=== PATIENT | male | born 1995 | race Caucasian/White ===

== ENCOUNTER 2018-05-06 20:32 | Emergency (ER) | payer OTHER ==
[2018-05-06 21:09] VITALS: BP 123/65
[2018-05-06] MEDS ORDERED: NORMAL SALINE 1000 ML 1,000 ML IV ONE (21:56)
[2018-05-06] MEDS ORDERED: DICYCLOMINE HCL INJ 20 MG/2 ML AMPULE IM ONE (21:56)
[2018-05-06] MEDS ORDERED: ONDANSETRON HCL INJ/PF 4 MG/2 ML SDV IV ONE (21:56)
--- NOTE | 2018-05-06 22:01 | ER Document Report ---
ED General - General Chief Complaint: Nausea/Vomiting/Diarrhea Stated Complaint: VOMITING Time Seen by Provider: 05/06/18 21:51 Notes: Patient is a 22-year-old male who presents with complaint of nausea vomiting diarrhea. He has had some crampy abdominal pain. Started with crampy abdominal pain around 9 AM. That he start having vomiting diarrhea and says he said consistent with recurrent vomiting and diarrhea since then. Stools been watery. Last antibiotic use was approximately month ago when he was placed on clindamycin. No recent fevers. Some epigastric pain with the vomiting. No right lower quadrant tenderness. No recent travel outside the country. No blood in his stool or emesis. No other points at this time. He is unsure if he had any sick contacts. TRAVEL OUTSIDE OF THE [place] IN LAST 30 DAYS: No - Related Data Allergies/Adverse Reactions: Sulfa (Sulfonamide Antibiotics) Allergy (Verified 05/06/18 20:33) Past Medical History - Social History Smoking Status: Never Smoker Frequency of alcohol use: None Drug Abuse: None Family History: Reviewed & Not Pertinent Review of Systems - Review of Systems Notes: My Normal Review Basic REVIEW OF SYSTEMS: CONSTITUTIONAL : Denies fever, chills, or sweats. Denies recent illness. EENT: Denies eye, ear, throat, or mouth pain or symptoms. Denies nasal or sinus congestion. RESPIRATORY: Denies cough, cold, or chest congestion. Denies shortness of breath, difficulty breathing, or wheezing. GASTROINTESTINAL: Abdominal pain, vomiting, diarrhea. GENITOURINARY: Denies difficulty urinating, painful urination, burning, frequency, or blood in urine. MUSCULOSKELETAL: Denies neck or back pain or joint pain or swelling. SKIN: Denies rash or skin lesions. NEUROLOGICAL: Denies altered mental status or loss of consciousness. Denies headache. Denies weakness or paralysis or loss of use of either side. Denies problems with gait or speech. Denies sensory or motor loss. ALL OTHER SYSTEMS REVIEWED AND NEGATIVE. Physical Exam - Vital signs Vitals: Temp Pulse Resp BP Pulse Ox 98.0 F 92 24 H 123/65 100 05/06/18 21:08 05/06/18 21:08 05/06/18 21:08 05/06/18 21:08 05/06/18 21:08 - Notes Notes: General Appearance: Well nourished, alert, cooperative, no acute distress, no obvious discomfort. Well-appearing. Vitals: reviewed, See vital signs table. Eyes: PERRL, EOMI, Conjuctiva clear Mouth: No decreasd moisture Lungs: No wheezing, No rales, No rhonci, No accessory muscle use, good air exchange bilaterally. Heart: Normal rate, Regular rythm, No murmur, no rub Abdomen: Normal BS, soft, No rigidity, mild tenderness to the upper abdomen that is worse than the left. No right lower quadrant tenderness to palpation., No guarding, no rebound, no abdominal masses, no organomegaly Extremities: good pulses in all extremities, no swelling or tenderness in the extremities, no edema. Skin: warm, dry, appropriate color, no rash Neuro: speech clear, oriented x 3, normal affect, responds appropriately to questions. Course - Re-evaluation Re-evalutation: 05/06/18 23:52 Patient's laboratory evaluation is unremarkable except for leukocytosis is not surprising in conjunction with a sudden onset of vomiting and diarrhea. Patient clinically looks very well. He feels much improved. His vital signs are normal. He has no further vomiting. She requesting to go home at this time. George jurado has no abdominal pain at this time. I informed him to have a low threshold to return to ER if he has recurrent vomiting despite Zofran, fevers, or recurrent abdominal pain, informed him he probably will still have diarrhea over the next 24 hours. I encouraged him to drink liquids and stay well-hydrated. Patient agrees with plan will be discharged home. Dictation of this chart was performed using voice recognition software; therefore, there may be some unintended grammatical errors. - Vital Signs Vital signs: Temp Pulse Resp BP Pulse Ox 98.0 F 92 24 H 123/65 100 05/06/18 21:08 05/06/18 21:08 05/06/18 21:08 05/06/18 21:08 05/06/18 21:08 - Laboratory Result Diagrams: 05/06/18 22:01 05/06/18 22:01 Laboratory results interpreted by me: 05/06/18 05/06/18 22:01 22:01 WBC 17.1 H RBC 5.76 H Hgb 17.6 H Seg Neuts % (Manual) 90 H Lymphocytes % (Manual) 3 L Abs Neuts (Manual) 15.9 H Chloride 96 L BUN 22 H Glucose 125 H Calcium 10.6 H Total Protein 8.6 H Discharge - Discharge Clinical Impression: Vomiting and diarrhea Condition: Good Disposition: HOME, SELF-CARE Additional Instructions: Please take the Zofran for nausea and vomiting. Please follow up with a doctor on Tuesday for reevaluation if you are still having symptoms. You can return to the ER for reevaluation if you do not have a primary care physician to follow up. please return to the ER immediately if you have recurring worsening abdominal pain, fevers, recurrent vomiting despite the Zofran, blood in your stool, or if you feel that you are worsening in any way. Prescriptions: Ondansetron [Zofran Odt 4 mg Tablet] 1 tab PO Q4H PRN #15 tab.rapdis PRN Reason: For Nausea/Vomiting
[2018-05-06 22:17] LABS: HEMATOCRIT 49.9 % (37.9-51.0); HEMOGLOBIN 17.6 g/dL (13.5-17.0); MEAN CORPUSCULAR HEMOGLOBIN 30.5 pg (27.0-33.4); MEAN CORPUSCULAR HGB CONC 35.2 g/dL (32.0-36.0); MEAN CORPUSCULAR VOLUME 87 fl (80-97); PLATELET COUNT 249 10^3/uL (150-450); RED BLOOD COUNT 5.76 10^6/uL (4.35-5.55); RED CELL DISTRIBUTION WIDTH 13.2 % (11.5-14.0); WHITE BLOOD COUNT 17.1 10^3/uL (4.0-10.5)
[2018-05-06 22:26] LABS: ALANINE AMINOTRANSFERASE 71 U/L (21-72); ALKALINE PHOSPHATASE 49 U/L (38-126); ANION GAP 18 (5-19); ASPARTATE AMINO TRANSFERASE 49 U/L (17-59); BILIRUBIN,DIRECT 0.3 mg/dL (0.0-0.4); BILIRUBIN,TOTAL 1.1 mg/dL (0.2-1.3); BLOOD UREA NITROGEN 22 mg/dL (7-20); CALCIUM 10.6 mg/dL (8.4-10.2); CARBON DIOXIDE 24 mmol/L (22-30); CHLORIDE 96 mmol/L (98-107); GLUCOSE 125 mg/dL (75-110); POTASSIUM 4.8 mmol/L (3.6-5.0); SODIUM 138.1 mmol/L (137-145); TOTAL PROTEIN 8.6 g/dL (6.3-8.2)
[2018-05-06 22:34] LABS: ABSOLUTE LYMPHOCYTES# (MANUAL) 0.5 10^3/uL (0.5-4.7); ABSOLUTE MONOCYTES # (MANUAL) 0.5 10^3/uL (0.1-1.4); ABSOLUTE NEUTROPHILS# (MANUAL) 15.9 10^3/uL (1.7-8.2); BAND NEUTROPHILS % (MANUAL) 3 % (3-5); BASOPHILS % (MANUAL) 0 % (0-2); EOSINOPHILS % (MANUAL) 1 % (0-6); LYMPHOCYTES % (MANUAL) 3 % (13-45); MONOCYTES % (MANUAL) 3 % (3-13); SEGMENTED NEUTROPHILS % (MAN) 90 % (42-78); TOTAL CELLS COUNTED 100
[2018-05-06 22:35] LABS: RBC MORPHOLOGY COMMENT NORMO-CYTIC/CHROMIC
[2018-05-06 22:36] LABS: PLATELET COMMENT ADEQUATE
[2018-05-06] MEDS ORDERED: ONDANSETRON ODT 4 MG TAB (6 TAB/ER DISP) PO PRN (23:48)
== END 2018-05-07 00:03 | disposition home or self-care (01) ==
LOC: ER 20:32
DX: R11.2 Nausea with vomiting, unspecified (principal); R19.7 Diarrhea, unspecified; R10.13 Epigastric pain; D72.829 Elevated white blood cell count, unspecified; Z88.2 Allergy status to sulfonamides
CPT/HCPCS: 99284; 96372; 96361; 96374; 36415; 85025; 80053; J0500; J2405; J7030